=== PATIENT | female | born 1990 | race African-American/Black ===

== ENCOUNTER 2019-10-18 05:16 | Inpatient (IN) ==
[2019-10-18] MEDS ORDERED: ceFAZolin 2,000 MG in PREMIX 1 EACH IV ONE (06:30)
[2019-10-18 06:40] LABS: Hematocrit 32.9 VOL% (35.7-47.0); Hemoglobin 10.7 GM/DL (12.0-16.0); Mean Corpuscular HGB Conc 32.5 GM/DL (32-36); Mean Corpuscular Volume 92.2 FL (87-102); Red Blood Count 3.57 MC/CUMM (3.8-5.5); White Blood Count 8.3 T/CUMM (4-12)
[2019-10-18 06:41] LABS: Basophils % 0.4 % (0.0-0.8); Eosinophils # 0.2 10*3/uL (0.0-0.87); Eosinophils % 2.8 % (0.00-10.9); Immature Granulocytes % 1.7 %; Immature Granulocytes Absolute 0.14 #; Lymphocytes # 2.4 10*3/uL (1.4-4.0); Lymphocytes % 28.5 % (21.3-54.2); Mean Platelet Volume 10.1 FL (9.6-12.0); Monocytes % 5.6 % (1.7-12.7); NRBC # 0.02 10*3/uL; Platelet Count 234 T/CUMM (130-400); Red Cell Distribution Width 14.6 % (9.3-17.3)
[2019-10-18 07:00] LABS: Albumin 2.5 G/DL (3.4-5.0); Bilirubin,Total 0.7 MG/DL (0.2-1.0); Calcium 8.6 MG/DL (8.5-10.1); Osmolality,Calculated 276.4 MOS/KG (273-304); Total Protein 6.5 G/DL (6.4-8.3)
[2019-10-18] MEDS ORDERED: DEXAMETHASONE 4 MG/1 ML VIAL ONE (07:13)
[2019-10-18] MEDS ORDERED: MORPHINE 10 MG/10 ML VIAL ONE (07:13)
[2019-10-18] MEDS ORDERED: KETOROLAC 60 MG/2 ML VIAL IM ONE (07:13)
[2019-10-18] MEDS: LACTATED RINGERS 1,000 ML IV SCH ×2 (07:13→18:06)
[2019-10-18] MEDS ORDERED: ONDANSETRON 4 MG/2 ML VIAL ONE (07:13)
[2019-10-18] MEDS ORDERED: fentaNYL 100 MCG/2 ML VIAL ONE (07:13)
[2019-10-18] MEDS ORDERED: PHENYLEPHRINE 1 MG/10 ML SYRINGE IV ONE ×2 (07:13→11:02)
[2019-10-18] MEDS ORDERED: BUPIVACAINE 0.5% 50 ML VIAL ONE (07:13)
[2019-10-18] MEDS ORDERED: BUPIVACAINE SPINAL 0.75% 2 ML AMP SPINAL ONE (07:13)
[2019-10-18] MEDS ORDERED: EPINEPHrine 1 MG/ML VIAL ONE (07:13)
[2019-10-18] MEDS ORDERED: OXYTOCIN/LR 20 UNIT/1,000 ML BAG IV ONE ×2 (07:30→10:38)
[2019-10-18] MEDS ORDERED: CITRIC ACID/SODIUM CITRATE 30 ML UDCUP PO ONE (07:30)
[2019-10-18] MEDS ORDERED: FAMOTIDINE 20 MG/2 ML VIAL IV ONE (07:30)
[2019-10-18] MEDS ORDERED: WITCH HAZEL PADS 100/JAR TOP PRN (10:38)
[2019-10-18] MEDS ORDERED: BENZOCAINE 20%/MENTHOL 0.5% SPRAY 56 GM CAN TOP PRN (10:38)
[2019-10-18] MEDS ORDERED: oxyCODONE/ACETAMINOPHEN 5-325 MG TABLET PO PRN (10:38)
[2019-10-18] MEDS ORDERED: RHO(D) IMMUNE GLOBULIN 300 MCG SYRINGE IM ONE (10:38)
[2019-10-18] MEDS ORDERED: LANOLIN 50% CREAM 0.3 OZ TUBE TOP PRN (10:38)
[2019-10-18] MEDS ORDERED: ACETAMINOPHEN 325 MG TABLET PO PRN (10:38)
[2019-10-18] MEDS ORDERED: MEASLES/MUMPS/RUBELLA VACCINE 0.5 ML VIAL SUBCUT ONE (10:38)
[2019-10-18] MEDS ORDERED: DIPH/TET/ACEL PERT BOOSTER VACCINE 0.5 ML VIAL IM ONE (10:38)
[2019-10-18] MEDS ORDERED: BISACODYL 10 MG SUPP RECTAL PRN (10:38)
[2019-10-18] MEDS ORDERED: HYDROCORTISONE 2.5% RECTAL CREAM 30 GM TUBE TOP PRN (10:38)
[2019-10-18] MEDS ORDERED: diphenhydrAMINE 50 MG/1 ML VIAL IV PRN (11:00)
[2019-10-18] MEDS ORDERED: hydrOXYzine HCL 25 MG/1 ML VIAL IM PRN (11:00)
[2019-10-18] MEDS ORDERED: HYDROmorphone 2 MG/1 ML VIAL IV PRN (11:00)
[2019-10-18] MEDS: ONDANSETRON 4 MG/2 ML VIAL IV PRN ×2 (12:02→17:54)
[2019-10-18] MEDS ORDERED: PROMETHAZINE 25 MG/1 ML VIAL IM ONE (13:33)
[2019-10-18] MEDS: KETOROLAC 30 MG/1 ML VIAL IV SCH (17:56)
[2019-10-18] MEDS: ceFAZolin 1,000 MG in SYRINGE 1 EACH IV SCH (17:59)
[2019-10-18] MEDS: DOCUSATE SODIUM 100 MG CAPSULE PO SCH (20:13)
[2019-10-18 20:54] LABS: Apearance,Urine CLEAR (Clear); Bilirubin,Urine Negative (Negative); Blood, Urine Moderate mg/dL (Negative); Glucose,Urine (UA) Negative (Negative); Ketones,Urine 5 mg/dL (Negative); Mucus,Urine Few /LPF (Occasional); Nitrite,Urine Negative (Negative); Protein,Urine Negative; RBC,Urine 150 /HPF (0-4); Urine Color Yellow (Yellow); Urine Specific Gravity 1.012 (1.001-1.035); Urine Urobilinogen < 2.0 EU/DL (0.2-1.0); WBC,Urine 50 /HPF (0-6)
[2019-10-19] MEDS: KETOROLAC 30 MG/1 ML VIAL IV SCH ×2 (00:05→05:45)
[2019-10-19] MEDS: ceFAZolin 1,000 MG in SYRINGE 1 EACH IV SCH (01:47)
[2019-10-19] MEDS: LACTATED RINGERS 1,000 ML IV SCH (02:10)
[2019-10-19 05:47] LABS: Basophils % 0.2 % (0.0-0.8); Eosinophils % 0.1 % (0.00-10.9); Hemoglobin 9.1 GM/DL (12.0-16.0); Immature Granulocytes % 1.1 %; Immature Granulocytes Absolute 0.18 #; Lymphocytes # 1.9 10*3/uL (1.4-4.0); Lymphocytes % 11.5 % (21.3-54.2); Mean Corpuscular HGB Conc 32.5 GM/DL (32-36); Mean Corpuscular Volume 92.4 FL (87-102); Mean Platelet Volume 10.8 FL (9.6-12.0); Monocytes % 4.8 % (1.7-12.7); NRBC # 0.02 10*3/uL; Neutrophils % 82.3 % (38.7-73.9); Platelet Count 208 T/CUMM (130-400); Red Blood Count 3.03 MC/CUMM (3.8-5.5); Red Cell Distribution Width 14.7 % (9.3-17.3); White Blood Count 16.2 T/CUMM (4-12)
[2019-10-19] MEDS ORDERED: MAGNESIUM HYDROXIDE SUSP 30 ML UDCUP PO PRN (08:02)
[2019-10-19] MEDS ORDERED: SIMETHICONE CHEW 80 MG TABLET PO PRN (08:02)
[2019-10-19] MEDS ORDERED: INFLUENZA VIRUS VACCINE 0.5 ML SYRINGE IM ONE (09:00)
[2019-10-19] MEDS: DOCUSATE SODIUM 100 MG CAPSULE PO SCH ×2 (10:18→21:48)
[2019-10-19] MEDS: oxyCODONE/ACETAMINOPHEN 5-325 MG TABLET PO PRN ×2 (13:50→21:40)
[2019-10-20] MEDS: IBUPROFEN 800 MG TABLET PO PRN ×3 (00:27→13:53)
[2019-10-20] MEDS: oxyCODONE/ACETAMINOPHEN 5-325 MG TABLET PO PRN ×3 (03:30→13:52)
[2019-10-20] MEDS: DOCUSATE SODIUM 100 MG CAPSULE PO SCH (08:31)
[2019-10-20 11:53] VITALS: BP 145/87
== END 2019-10-20 16:45 | disposition home or self-care (01) | DRG 788 ==
LOC: N.LDOUT 05:16 → N.LD 05:18 → N.OB 16:07
PROVIDERS: ADMIT Specialist; ATTEND Specialist
PROC: LDCSECT (ICD-10-PCS; 2019-10-18 09:00)

== ENCOUNTER 2021-10-07 09:05 | Observation (INO) ==
[2021-10-07] MEDS ORDERED: HYDROmorphone 2 MG/1 ML VIAL IV STA (09:37)
[2021-10-07] MEDS ORDERED: ONDANSETRON 4 MG/2 ML VIAL IV STA ×2 (09:37→11:34)
[2021-10-07] MEDS ORDERED: SODIUM CHLORIDE 0.9% 1,000 ML IV STA (09:37)
[2021-10-07] MEDS ORDERED: KETOROLAC 30 MG/1 ML VIAL IV STA (09:37)
[2021-10-07 10:20] LABS: Bacteria,Urine Occasional /HPF (Few); Bilirubin,Urine Negative (Negative); Blood, Urine Small mg/dL (Negative); Glucose,Urine (UA) Negative (Negative); Ketones,Urine Negative (Negative); Mucus,Urine Occasional /LPF (Occasional); Nitrite,Urine Negative (Negative); Protein,Urine Negative; RBC,Urine 5 /HPF (0-4); Squamous Epithelial Cell,Urine Few /HPF (0-10); Urine Appearance Slightly Hazy (Clear); Urine Color Yellow (Yellow); Urine Specific Gravity 1.021 (1.001-1.035); Urine Urobilinogen < 2.0 EU/DL (0.2-1.0)
[2021-10-07] MEDS ORDERED: cefTRIAXone 1,000 MG in SODIUM CHLORIDE 0.9% 100 ML IV STA (11:15)
[2021-10-07 11:27] LABS: Basophils % 0.3 % (0.0-0.8); Eosinophils % 0.3 % (0.00-10.9); Hematocrit 38.9 VOL% (35.7-47.0); Hemoglobin 12.7 GM/DL (12.0-16.0); Immature Granulocytes % 0.7 %; Immature Granulocytes Absolute 0.08 #; Lymphocytes # 1.6 10*3/uL (1.4-4.0); Lymphocytes % 13.8 % (21.3-54.2); Mean Corpuscular HGB Conc 32.6 GM/DL (32-36); Mean Corpuscular Volume 94.9 FL (87-102); Mean Platelet Volume 11.3 FL (9.6-12.0); Monocytes % 3.9 % (1.7-12.7); Platelet Count 207 T/CUMM (130-400); Red Cell Distribution Width 13.7 % (9.3-17.3); White Blood Count 11.3 T/CUMM (4-12)
[2021-10-07 11:40] LABS: Albumin 3.5 G/DL (3.4-5.0); Calcium 9.1 MG/DL (8.5-10.1); Osmolality,Calculated 273.7 MOS/KG (273-304); Potassium 3.2 MMOL/L (3.5-5.1); Total Protein 7.7 G/DL (6.4-8.2)
[2021-10-07] MEDS ORDERED: PROMETHAZINE 25 MG/1 ML VIAL IM PRN (12:30)
[2021-10-07] MEDS ORDERED: SODIUM CHLORIDE 0.9% 1,000 ML IV SCH (12:30)
[2021-10-07] MEDS ORDERED: oxyCODONE/ACETAMINOPHEN 5-325 MG TABLET PO PRN (12:30)
[2021-10-07] MEDS ORDERED: CALCIUM CARBONATE CHEW 500 MG TABLET PO PRN (12:30)
[2021-10-07] MEDS ORDERED: SIMETHICONE CHEW 125 MG TABLET PO PRN (12:30)
[2021-10-07] MEDS ORDERED: diphenhydrAMINE 50 MG/1 ML VIAL IV PRN (12:30)
[2021-10-07] MEDS ORDERED: ACETAMINOPHEN 325 MG TABLET PO PRN (12:30)
[2021-10-07] MEDS ORDERED: propofoL 200 MG/20 ML VIAL IV ONE (14:21)
[2021-10-07] MEDS ORDERED: LIDOCAINE 2% 5 ML VIAL ONE (14:21)
[2021-10-07] MEDS ORDERED: MIDAZOLAM 2 MG/2 ML VIAL ONE (14:21)
[2021-10-07] MEDS ORDERED: SEVOFLURANE 1 UNIT/15 MINUTE INH ONE (14:21)
[2021-10-07] MEDS ORDERED: fentaNYL 100 MCG/2 ML VIAL ONE (14:21)
[2021-10-07] MEDS ORDERED: SUCCINYLCHOLINE 200 MG/10 ML VIAL ONE (15:06)
[2021-10-07] MEDS ORDERED: ROCURONIUM 50 MG/5 ML VIAL IV ONE (15:06)
[2021-10-07] MEDS: ONDANSETRON 4 MG/2 ML VIAL IV PRN ×2 (15:35→21:10)
[2021-10-07] MEDS ORDERED: POTASSIUM CHLORIDE 20 MEQ TABLET PO ONE (16:30)
[2021-10-07] MEDS ORDERED: INFLUENZA VIRUS VACCINE 0.5 ML SYRINGE IM ONE (16:38)
[2021-10-07] MEDS: SODIUM CHLOR 0.9% KCL 20 MEQ 20 MEQ/1,000 ML BAG IV SCH (16:43)
[2021-10-07] MEDS ORDERED: OXYBUTYNIN 5 MG TABLET PO PRN (17:23)
[2021-10-07] MEDS: HYDROmorphone 2 MG/1 ML VIAL IV PRN (17:39)
[2021-10-08] MEDS: SODIUM CHLOR 0.9% KCL 20 MEQ 20 MEQ/1,000 ML BAG IV SCH ×2 (00:27→10:42)
[2021-10-08] MEDS: HYDROmorphone 2 MG/1 ML VIAL IV PRN (06:37)
[2021-10-08] MEDS ORDERED: cefTRIAXone 1,000 MG in SODIUM CHLORIDE 0.9% 100 ML IV SCH (07:30)
[2021-10-08 07:31] LABS: Basophils % 0.4 % (0.0-0.8); Eosinophils # 0.1 10*3/uL (0.0-0.87); Eosinophils % 1.2 % (0.00-10.9); Hematocrit 33.5 VOL% (35.7-47.0); Immature Granulocytes % 0.4 %; Immature Granulocytes Absolute 0.03 #; Lymphocytes % 25.3 % (21.3-54.2); Mean Corpuscular HGB Conc 31.6 GM/DL (32-36); Mean Corpuscular Volume 96.3 FL (87-102); Mean Platelet Volume 9.4 FL (9.6-12.0); Monocytes % 5.5 % (1.7-12.7); Neutrophils % 67.2 % (38.7-73.9); Platelet Count 200 T/CUMM (130-400); Red Blood Count 3.48 MC/CUMM (3.8-5.5); Red Cell Distribution Width 14.1 % (9.3-17.3)
[2021-10-08 07:32] LABS: Hemoglobin 10.6 GM/DL (12.0-16.0)
[2021-10-08 07:44] LABS: Calcium 7.7 MG/DL (8.5-10.1); Potassium 3.3 MMOL/L (3.5-5.1)
[2021-10-08] MEDS ORDERED: ETHINYL ESTRADIOL PO SCH (09:00)
[2021-10-08] MEDS ORDERED: LEVONORGESTREL PO SCH (09:00)
[2021-10-08] MEDS ORDERED: [UNRECOGNIZED DRUG - OTHER] PO SCH (09:00)
[2021-10-08] MEDS ORDERED: POTASSIUM CHLORIDE 20 MEQ TABLET PO ONE (11:09)
[2021-10-08 12:05] VITALS: BP 108/56
== END 2021-10-08 13:00 | disposition home or self-care (01) ==
LOC: N.ED 09:05 → N.EDINP 09:05 → N.5E 14:15
PROVIDERS: ADMIT Surgery; ATTEND Surgery